=== PATIENT | male | born 1955 | race Caucasian/White ===

== ENCOUNTER 2020-08-18 13:02 | Day surgery (SDC) | payer OTHER ==
[~2020-08-18 13:02] MED LIST: DIOVAN160 M1 PO; TOPROL XL25 M1 PO
[2020-08-18] MEDS ORDERED: PERCOCET 5-3251 EACH PO (16:57)
== END 2020-08-18 21:38 | disposition home or self-care (01) ==
LOC: CIR.AMB 13:02
PROVIDERS: ATTEND Surgery
DX: N52.8 Other male erectile dysfunction (principal); Z20.828 Contact with and (suspected) exposure to other viral communicable diseases
CPT/HCPCS: 54405; C1813